=== PATIENT | male | born 1990 | race Caucasian/White ===

== ENCOUNTER 2020-01-01 16:35 | Emergency (ER) | payer BC ==
[~2020-01-01] VITALS: Ht 177.8 cm; Wt 90.7 kg
--- NOTE | 2020-01-01 16:43 | NUR ---
CAME IN FOR HEAD LACERATION VS CAR DOOR. -KO, TO ER BED 9, HOOKED TO MONITOR, CHANGEDT [facility], WARM BLABKET PROVIDED, AWAITING MD RITCHIE
--- NOTE | 2020-01-01 16:51 | NUR ---
DR PUGA AT BEDSIDE
[2020-01-01] MEDS ORDERED: LIDOCAINE 2%-EPI 1:100,000 30 ML VIAL TP ONE (17:00)
[2020-01-01] MEDS ORDERED: TDAP [DIPH/PERTUSSIS/TET] 0.5 ML VIAL IM ONE ×2 (17:00→17:05)
[2020-01-01] MEDS ORDERED: LIDOCAINE 1%-EPI 1:100,000 20 ML VIAL ONE (17:05)
--- NOTE | 2020-01-01 17:12 | NUR ---
DR PUGA AT BEDSIDE FOR STAPLING OF HEAD LACERATION
--- NOTE | 2020-01-01 17:26 | NUR ---
Patient discharged to home in stable condition. Written and verbal after care instructions given. Patient verbalizes understanding of instruction.
[2020-01-01 17:27] VITALS: BP 119/70
== END 2020-01-01 17:28 | disposition home or self-care (01) ==
LOC: ER 16:37
PROC: 0HQ0XZZ Repair Scalp Skin, External Approach (ICD-10-PCS; principal; 2020-01-01)
DX: S01.01XA Laceration without foreign body of scalp, initial encounter (principal); V48.3XXA Unspecified car occupant injured in noncollision transport accident in nontraffic accident, initial encounter; Y93.89 Activity, other specified; Y92.481 Parking lot as the place of occurrence of the external cause
CPT/HCPCS: 99283; 12004; 90471; 90715; A6403 ×2; J3490

== ENCOUNTER 2020-01-05 14:26 | Emergency (ER) | payer BC ==
[~2020-01-05] VITALS: Ht 177.8 cm; Wt 90.7 kg
[2020-01-05 14:30] VITALS: BP 128/82
== END 2020-01-05 14:52 | disposition home or self-care (01) ==
LOC: ER 14:27
DX: S01.81XD Laceration without foreign body of other part of head, subsequent encounter (principal); X58.XXXD Exposure to other specified factors, subsequent encounter

== ENCOUNTER 2020-01-14 12:54 | Emergency (ER) | payer BC ==
[~2020-01-14] VITALS: Ht 170.2 cm; Wt 81.6 kg
[2020-01-14 13:05] VITALS: BP 143/76
== END 2020-01-14 13:36 | disposition home or self-care (01) ==
LOC: ER 12:59
DX: S01.01XD Laceration without foreign body of scalp, subsequent encounter (principal); W22.8XXD Striking against or struck by other objects, subsequent encounter